=== PATIENT | male | born 1985 | race Two or more races ===

== ENCOUNTER 2016-07-08 23:53 | Emergency (ER) | payer MEDICAID ==
[~2016-07-08] VITALS: Ht 175.3 cm; Wt 113.4 kg
[~2016-07-08 23:53] MED LIST: CLIN1CAP4 PO
[2016-07-09] VITALS: BP 149/111
[2016-07-09] MEDS ORDERED: CYCLOBENZAPRINE HCL 10 MG TAB PO ONE (01:45)
== END 2016-07-09 01:53 | disposition home or self-care (01) ==
LOC: ER 23:53
DX: S20.211A Contusion of right front wall of thorax, initial encounter (principal); E11.9 Type 2 diabetes mellitus without complications; Z88.6 Allergy status to analgesic agent; V43.52XA Car driver injured in collision with other type car in traffic accident, initial encounter; Y93.89 Activity, other specified; Y92.89 Other specified places as the place of occurrence of the external cause; Y99.8 Other external cause status; M79.1 Myalgia
CPT/HCPCS: 71101

== ENCOUNTER 2017-12-28 17:15 | Emergency (ER) | payer MEDICAID ==
[~2017-12-28] VITALS: Ht 175.3 cm; Wt 119.1 kg
[2017-12-28 17:42] VITALS: BP 122/58
[2017-12-28] MEDS ORDERED: KETOROLAC TROMETH 60MG/2ML VIAL IM ONE (21:15)
[2017-12-28] MEDS ORDERED: DEXAMETHASONE SOD PHOS 10MG/1ML VIAL INJ IM ONE (21:15)
== END 2017-12-28 21:40 | disposition home or self-care (01) ==
LOC: ER 17:15
DX: S20.211A Contusion of right front wall of thorax, initial encounter (principal); E11.9 Type 2 diabetes mellitus without complications; Z88.6 Allergy status to analgesic agent; Z87.442 Personal history of urinary calculi; W01.0XXA Fall on same level from slipping, tripping and stumbling without subsequent striking against object, initial encounter; Y93.89 Activity, other specified; Y92.89 Other specified places as the place of occurrence of the external cause; Y99.8 Other external cause status
CPT/HCPCS: 71101; 96372; 99284; J1100; J1885

== ENCOUNTER 2021-01-31 13:13 | Emergency (ER) | payer MEDICAID ==
[~2021-01-31] VITALS: Ht 175.3 cm; Wt 108.9 kg
[~2021-01-31 13:13] MED LIST changes: -CLIN1CAP4 PO; +CLIN300C8 PO
[2021-01-31 18:53] VITALS: BP 143/92
[2021-01-31] MEDS ORDERED: methylPREDNISolone SOD SUCC 125 MG/2 ML VL IM ONE (19:15)
== END 2021-01-31 19:37 | disposition home or self-care (01) ==
LOC: ER 13:13
DX: S73.101A Unspecified sprain of right hip, initial encounter (principal); M17.11 Unilateral primary osteoarthritis, right knee; E66.9 Obesity, unspecified; Z68.35 Body mass index [BMI] 35.0-35.9, adult; E11.9 Type 2 diabetes mellitus without complications; Z79.2 Long term (current) use of antibiotics; Z88.8 Allergy status to other drugs, medicaments and biological substances; X58.XXXA Exposure to other specified factors, initial encounter; Y93.89 Activity, other specified; Y92.89 Other specified places as the place of occurrence of the external cause; Y99.8 Other external cause status
CPT/HCPCS: 73502; 73562; 96372; 99284; J2930